=== PATIENT | male | born 1965 | race Caucasian/White ===

== ENCOUNTER 2017-02-17 18:07 | Emergency (ER) | payer OTHER ==
[~2017-02-17] VITALS: Ht 167.6 cm; Wt 71.1 kg
[2017-02-17 18:11] VITALS: TEMP 36.8; Ht 167.6 cm; Wt 71.1 kg
[2017-02-17] MEDS ORDERED: RABIES VACCINE (IMOVAX) HUMAN DIPL CELL 2.5 INTER.UNIT/ML SYR IM. ONE (18:30)
[2017-02-17] MEDS ORDERED: RABIES IMMUNE GLOBULIN (HUMAN) 150 INTER.UNIT/ML 2 ML VIAL IM. ONE (18:30)
--- NOTE | 2017-02-17 18:42 | EMERGENCY ROOM VISIT NOTE ---
ED Visit Note First contact with patient: 18:19 CHIEF COMPLAINT: Possible rabies exposure HISTORY OF PRESENT ILLNESS: This 51-year-old male patient presents to the emergency department ambulatory. There is concern for rabies exposure. The patient states that on February 09 he was attacked by what he believes was a rabid acosta. The patient killed the acosta buried it. He states that he did not initially believe he had any bites or scratches. He states that in the last several days he noticed 2 small wounds to the right lower extremity. He reports a history of psoriasis and open areas to the leg but cannot explain these wounds and is concerned that it could have been a bite. He did not have any bleeding. His tetanus is not up-to-date REVIEW OF SYSTEMS: A 6 system review of systems was completed with positives and pertinent negatives listed in the HPI. ALLERGIES: No known allergies MEDICATIONS: Topical medications PMH: Psoriasis. SOCIAL HISTORY: Patient lives locally. PHYSICAL EXAM: Vital Signs: Reviewed Nurse's notes, vital signs stable. GENERAL : This is a 51-year-old male, in no acute distress, well-developed, well- nourished. HEAD: Atraumatic, without temporal or scalp tenderness. EYES: PERRLA, EOMI, no discharge or injection. SKIN: There is psoriasis and open areas to the anterior right lower extremity. There are 2 small areas to the medial ankle that are not open but could represent potential puncture wounds. Capillary refill less than 2 seconds. NEUROLOGICAL: Alert and oriented to person place and time. Normal sensation to light and sharp touch. MUSCULOSKELETAL: Motor functions grossly intact of the arms and legs. Full range of motion. EMERGENCY DEPARTMENT COURSE: I examined the patient. The patient was given RIG 20 Units/kg. I did inject 1 mL immunoglobulin at the site of possible bite. The patient was given Imovax 1ml IM. The patient was observed for 20 minutes with no reaction. The patient was discharged home in stable condition. DIAGNOSIS: Rabies prophylaxis DISCHARGE INSTRUCTIONS: Today is day 0. Return to the ER on days 3, 7, 14 for subsequent vaccinations. Return sooner or follow up with your family doctor for signs of infection (increased redness, discharge, fever) or for complications with the vaccine series. February 20February 24March 03 Current/Historical Medications No Active Prescriptions or Reported Meds Allergies Uncoded Allergies: CLOROX (Allergy, Intermediate, RASH, 6/4/17) CLOROX BLEACH Vital Signs Date Time Temp Pulse Resp B/P (MAP) Pulse Ox O2 Delivery O2 Flow Rate FiO2 02/17/17 20:15 74 12 138/78 99 02/17/17 18:11 36.8 98 18 144/93 96 Room Air Medications Administered Medications (Trade) Dose Ordered Sig/Jose Route Start Time Stop Time Status Last Admin Dose Admin Rabies Immune Globulin (Imogam Rabies Inj) 1,425 interunit ONCE ONCE IM. 02/17/17 18:30 02/17/17 18:31 DC 02/17/17 18:46 1,425 INTERUNIT Rabies Vaccine Human Diploid Cell (Imovax Rabies) 2.5 interunit ONCE ONCE IM. 02/17/17 18:30 02/17/17 18:31 DC 02/17/17 18:44 2.5 INTERUNIT Diphtheria/ Pertussis/Tetanus Vacc (Adacel Inj) 0.5 ml ONCE ONCE IM. 02/17/17 18:45 02/17/17 18:46 DC 02/17/17 19:01 0.5 ML Departure Information Impression Primary Impression: Rabies, need for prophylactic vaccination against Dispostion Home / Self-Care Condition GOOD Prescriptions No Active Prescriptions or Reported Meds Referrals Jhon Krueger D.OPaulette (PCP) Patient Instructions My [facility], Rabies, Rabies Immune Globulin human RIG solution for injection Additional Instructions Today is day 0. Return to the ER on days 3, 7, 14 for subsequent vaccinations. Return sooner or follow up with your family doctor for signs of infection ( increased redness, discharge, fever) or for complications with the vaccine series. February 20February 24March 03
[2017-02-17] MEDS ORDERED: DIPHTHERIA/TETANUS/PERTUSSIS 0.5 ML SYR/VIAL IM. ONE (18:45)
[2017-02-17 20:15] VITALS: BP 138/78; PULSE 74; O2SAT 99
== END 2017-02-17 20:16 | disposition home or self-care (01) ==
LOC: C.EDB 18:10 → C.EDD 20:16
DX: Z20.3 Contact with and (suspected) exposure to rabies (principal)

== ENCOUNTER 2017-02-24 07:29 | Emergency (ER) | payer OTHER ==
[~2017-02-24] VITALS: Ht 167.6 cm; Wt 71.1 kg
[2017-02-24 07:34] VITALS: TEMP 36.7; Ht 167.6 cm; Wt 71.1 kg
[2017-02-24] MEDS ORDERED: RABIES VACCINE (IMOVAX) HUMAN DIPL CELL 2.5 INTER.UNIT/ML SYR IM. ONE (07:45)
--- NOTE | 2017-02-24 07:49 | EMERGENCY ROOM VISIT NOTE ---
ED Visit Note First contact with patient: 07:36 CHIEF COMPLAINT: Rabies shot #3 HISTORY OF PRESENT ILLNESS: Patient is a 51-year-old white male who returns to the emergency department as advised for his third rabies vaccination. He was potentially exposed to rabies when he had an incident with a acosta that was acting strangely. No problems with his prior vaccinations other than localized muscle soreness. REVIEW OF SYSTEMS: Review of systems as per HPI. All other systems reviewed were negative. At least 6 systems reviewed. PMH: Reviewed and unchanged from prior visit. SOCIAL HISTORY: Patient lives at home. PHYSICAL EXAM: Vital Signs: Reviewed Nurse's notes. HEAD: Atraumatic, without temporal or scalp tenderness. EYES: PERRL, EOMI, no discharge or injection. SKIN: Normal. NEUROLOGICAL: Alert and cooperative. Sensory and motor functions grossly intact. EMERGENCY DEPARTMENT COURSE: The patient was given Imovax, observed and then discharged. He was instructed to return to the emergency Department in one week for his final vaccination, sooner for any problems or concerns. Medication list was reviewed. Patient's blood pressure was normal on screening and does not require follow-up. Current/Historical Medications No Active Prescriptions or Reported Meds Allergies Uncoded Allergies: chlorox (Allergy, Unknown, unknown, 02/24/17) Vital Signs Date Time Temp Pulse Resp B/P (MAP) Pulse Ox O2 Delivery O2 Flow Rate FiO2 02/24/17 08:55 60 16 127/92 98 02/24/17 07:34 36.7 65 18 124/84 98 Room Air Medications Administered Medications (Trade) Dose Ordered Sig/Jose Route Start Time Stop Time Status Last Admin Dose Admin Rabies Vaccine Human Diploid Cell (Imovax Rabies) 2.5 interunit ONCE ONCE IM. 02/24/17 07:45 02/24/17 07:46 DC 02/24/17 08:23 2.5 INTERUNIT Departure Information Impression Primary Impression: Rabies, need for prophylactic vaccination against Prescriptions No Active Prescriptions or Reported Meds Referrals No Doctor, Assigned (PCP) Patient Instructions My [facility] Additional Instructions Return to the emergency department on Saturday 03/03 for your final vaccination, sooner for any problems or concerns.
[2017-02-24 08:55] VITALS: BP 127/92; PULSE 60; O2SAT 98
== END 2017-02-24 08:56 | disposition home or self-care (01) ==
LOC: C.EDB 07:30
DX: Z20.3 Contact with and (suspected) exposure to rabies (principal)

== ENCOUNTER 2017-03-03 10:36 | Emergency (ER) | payer OTHER ==
[~2017-03-03] VITALS: Ht 167.6 cm; Wt 71.1 kg
[2017-03-03 10:55] VITALS: Ht 167.6 cm; Wt 71.1 kg
[2017-03-03] MEDS ORDERED: RABIES VACCINE (IMOVAX) HUMAN DIPL CELL 2.5 INTER.UNIT/ML SYR IM. ONE (11:30)
[2017-03-03 11:58] VITALS: BP 124/85; PULSE 52; TEMP 36.8; O2SAT 99
--- NOTE | 2017-03-04 20:52 | EMERGENCY ROOM VISIT NOTE ---
ED Visit Note First contact with patient: 10:56 Chief Complaint: Rabies vaccination. History of Present Illness: Mr. Hernandes is a 51-year-old white male who ambulates into the ED requesting the last of his rabies vaccination immunization series. Patient reports he has not had any side effects from the vaccinations since they 've been started and he is feeling well today. Review of Systems: As noted above in history of present illness. See previous notes for past medical history, current medications, allergies to medications and social history. Physical Examination: Vital Signs: Date Time Temp Pulse Resp B/P (MAP) Pulse Ox O2 Delivery O2 Flow Rate FiO2 03/03/17 11:58 36.8 52 18 124/85 99 03/03/17 10:55 36.8 53 16 131/89 95 Room Air GENERAL: 51-year-old male in no acute distress, nontoxic-appearing, afebrile and hemodynamically stable. NEUROLOGICAL: Awake, alert and oriented to person, place and time. Answering questions appropriately and following commands. Normal gait. Good hand eye coordination. ED Course: Patient is assessed as noted above. Patient was given 2.5 interunits of rabies vaccination IM. Patient was observed for approximately 10-15 minutes and had no reactions. Patient was educated about today's findings and instructed on history of a plan ; he verbalizes understanding and agreement with this plan. Clinical Impression: Rabies vaccination. Disposition: Patient discharged home in stable condition; prior to departure he was reassessed and subjectively reported that he was pain and symptom-free. Plan: Patient was encouraged to follow-up with PCP or return to the ED for any signs of reactions to the medication or any new/concerning symptoms.
== END 2017-03-03 11:55 | disposition home or self-care (01) ==
LOC: C.EDB 10:37 → C.EDD 11:55
DX: Z23 Encounter for immunization (principal); Z20.3 Contact with and (suspected) exposure to rabies

== ENCOUNTER → 2017-03-11 | Outpatient (CLI) | payer OTHER | END | disposition home or self-care (01) | LOC: C.PATHSPEC 15:41 | PROVIDERS: ATTEND Dentist Oral and Maxillofacial Pathology | DX: D21.9 Benign neoplasm of connective and other soft tissue, unspecified (principal) ==